=== PATIENT | female | born 1955 | race Caucasian/White ===

== ENCOUNTER 2019-04-27 11:08 | Outpatient (CLI) | payer MEDICARE, OTHER ==
[2019-04-27] MEDS ORDERED: LOVA20TA2 PO (11:38)
[2019-04-27] MEDS ORDERED: BUSP5TAB2 PO (11:38)
[2019-04-27] MEDS ORDERED: IBUP-1223 PO (11:38)
[2019-04-27] MEDS ORDERED: B CO1TAB14 PO (11:52)
[2019-04-27] MEDS ORDERED: zeaxanthin PO (11:52)
[2019-04-27] MEDS ORDERED: MV-M1TAB16 PO (11:52)
[2019-04-27] MEDS ORDERED: VITA1CAP14 PO (11:52)
[2019-04-27] MEDS ORDERED: MULT-658 PO (11:52)
== END 2019-04-27 23:59 | disposition home or self-care (01) ==
LOC: STAR 11:08
PROVIDERS: ATTEND Obstetrics & Gynecology
DX: Z01.818 Encounter for other preprocedural examination (principal); N81.11 Cystocele, midline; Z88.1 Allergy status to other antibiotic agents
CPT/HCPCS: 93005

== ENCOUNTER 2019-05-05 06:49 | Day surgery (SDC) | payer MEDICARE, OTHER ==
[~2019-05-05] VITALS: Ht 162.6 cm; Wt 72.0 kg
[~2019-05-05 06:49] MED LIST: B CO1TAB14 PO; BUSP5TAB2 PO; IBUP-1223 PO; LOVA20TA2 PO; MULT-658 PO; MV-M1TAB16 PO; VITA1CAP14 PO; zeaxanthin PO
[2019-05-05] MEDS ORDERED: LACTATED RINGERS 1,000 ML IV SCH (07:42)
[2019-05-05] MEDS ORDERED: BUPIVACAINE/PF-EPI 0.25% 1:200K ONE (08:24)
[2019-05-05] MEDS ORDERED: INDIGO CARMINE 0.8%, 5ML ONE (08:24)
[2019-05-05] MEDS ORDERED: FENTANYL PF 250 MCG/5ML ONE (08:39)
[2019-05-05] MEDS ORDERED: MIDAZOLAM 1 MG/ML, 2ML ONE (08:39)
[2019-05-05] MEDS ORDERED: ACETAMINOPHEN 500 MG TABLET ONE (08:51)
[2019-05-05] MEDS ORDERED: GABAPENTIN 300 MG CAPSULE ONE (08:51)
[2019-05-05] MEDS ORDERED: CLINDAMYCIN 150 MG/ML, 6ML ONE (09:26)
[2019-05-05] MEDS ORDERED: OXYcodone 5 MG/5 ML ORAL.SOL UDC PO PRN (10:00)
[2019-05-05] MEDS ORDERED: DIAZEPAM 5 MG/ML, 2ML IVPush PRN (10:00)
[2019-05-05] MEDS ORDERED: PROMETHAZINE 25 MG/ML, 1ML IV PRN (10:00)
[2019-05-05] MEDS ORDERED: HYDROmorphone 2 MG/ML, 1ML IVPush PRN (10:00)
[2019-05-05] MEDS ORDERED: hydrALAzine 20 MG/ML, 1ML IV PRN (10:00)
[2019-05-05] MEDS ORDERED: LABETALOL 5MG/ML, 20ML IV PRN (10:00)
[2019-05-05] MEDS ORDERED: ALBUTEROL SULFATE 2.5 MG/3 ML NPPB PRN (10:00)
[2019-05-05] MEDS ORDERED: MEPERIDINE/PF 25MG/0.5ML IVPush PRN (10:00)
[2019-05-05] MEDS ORDERED: ACETAMINOPHEN 325 MG TABLET PO PRN (10:00)
[2019-05-05] MEDS ORDERED: SUGAMMADEX 200 MG/2 ML IVPush ONE ×2 (10:33→10:36)
[2019-05-05] MEDS ORDERED: SUCCINYLCHOLINE 20 MG/ML, 10ML ONE (10:37)
[2019-05-05] MEDS ORDERED: NEOSTIGMINE 1 MG/ML, 10ML ONE (10:37)
[2019-05-05] MEDS ORDERED: DEXAMETHASONE 4 MG/ML, 1ML ONE (10:37)
[2019-05-05] MEDS ORDERED: CEFAZOLIN 1,000 MG ONE (10:37)
[2019-05-05] MEDS ORDERED: ONDANSETRON 2MG/ML, 2ML ONE (10:37)
[2019-05-05] MEDS ORDERED: ROCURONIUM 10MG/ML,5ML ONE ×3 (10:37)
[2019-05-05] MEDS ORDERED: PROPOFOL 10 MG/ML, 20ML ONE (10:37)
[2019-05-05] MEDS ORDERED: GLYCOPYRROLATE 0.2MG/1ML, 5ML ONE (10:37)
[2019-05-05] MEDS ORDERED: FENTANYL PF 100 MCG/2ML ONE (11:18)
[2019-05-05] MEDS ORDERED: OXYcodone 5 MG/5 ML ORAL.SOL UDC ONE (11:18)
[2019-05-05] MEDS: FENTANYL PF 100 MCG/2ML IV PRN ×2 (11:21→11:39)
== END 2019-05-05 15:15 | disposition home or self-care (01) ==
LOC: OUT 06:49
PROVIDERS: ATTEND Obstetrics & Gynecology
DX: N81.4 Uterovaginal prolapse, unspecified (principal); N80.0 Endometriosis of uterus; N83.292 Other ovarian cyst, left side; N83.291 Other ovarian cyst, right side; G43.909 Migraine, unspecified, not intractable, without status migrainosus; Z98.890 Other specified postprocedural states; Z72.89 Other problems related to lifestyle; Z88.8 Allergy status to other drugs, medicaments and biological substances; Z87.39 Personal history of other diseases of the musculoskeletal system and connective tissue; Z88.1 Allergy status to other antibiotic agents
CPT/HCPCS: 58552; 88307; J0690; J1100; J2250; J2405; J2704; J3010; J2710; J0330